=== PATIENT | female | born 1995 | race Caucasian/White ===

== ENCOUNTER 2021-03-06 13:26 | Emergency (ER) | payer OTHER ==
[~2021-03-06] VITALS: Ht 154.9 cm; Wt 90.7 kg
[2021-03-06 13:38] VITALS: BP 122/76
[2021-03-06] MEDS ORDERED: IBUP-2213 PO (14:23)
[2021-03-06] MEDS ORDERED: CYCL-711 PO (14:23)
[2021-03-06] MEDS ORDERED: LID5T TP (14:23)
--- NOTE | 2021-03-06 15:51 | NUR ---
Patient discharged with v/s stable. Written and verbal after care instructions given and explained. Patient alert, oriented and verbalized understanding of instructions. Ambulatory with steady gait. All questions addressed prior to discharge. ID band removed. Patient advised to follow up with PMD. Rx of FLEXERIL, LIDODERM PATCH AND IBUPROFEN 600MG given. Patient educated on indication of medication including possible reaction and side effects. Opportunity to ask questions provided and answered. PATIENT SEEN AND TREATED BY KEYLA BARKLEY. NO NURSING INTERVENTIONS PROVIDED.
== END 2021-03-06 15:51 | disposition home or self-care (01) ==
LOC: MED 13:26
DX: S39.012A Strain of muscle, fascia and tendon of lower back, initial encounter (principal); S16.1XXA Strain of muscle, fascia and tendon at neck level, initial encounter; Z79.899 Other long term (current) drug therapy; V49.9XXA Car occupant (driver) (passenger) injured in unspecified traffic accident, initial encounter; Y93.89 Activity, other specified; Y92.89 Other specified places as the place of occurrence of the external cause; Y99.8 Other external cause status
CPT/HCPCS: 81025; 99283

== ENCOUNTER 2022-01-17 13:13 | Emergency (ER) | payer BC, MEDICAID ==
[~2022-01-17] VITALS: Ht 154.9 cm; Wt 95.7 kg
[~2022-01-17 13:13] MED LIST: CYCL-711 PO; IBUP-2213 PO; LID5T TP
[2022-01-17 13:27] VITALS: BP 128/62
--- NOTE | 2022-01-17 13:34 | NUR ---
PT AMBULATED TO BED 8 WITH STEADY GAIT
--- NOTE | 2022-01-17 13:40 | NUR ---
KEYLA Barrett at bedside evaluating patient.
--- NOTE | 2022-01-17 13:45 | NUR ---
Obtained ITZEL and FLU A&B specimens and walked to lab. Handed to CPT Fernando.
--- NOTE | 2022-01-17 14:05 | NUR ---
Radiology at bedside.
[2022-01-17] MEDS ORDERED: PRED20TA5 PO (14:46)
[2022-01-17] MEDS ORDERED: BENZ200C4 PO (14:46)
--- NOTE | 2022-01-17 14:55 | NUR ---
The patient's care was reviewed and supervised by Breanna Caceres, RN, RN.
[2022-01-17 15:01] VITALS: BP 120/70
--- NOTE | 2022-01-17 15:01 | NUR ---
Patient discharged with v/s stable. Written and verbal after care instructions given. Patient alert, oriented and verbalized understanding of instructions. Ambulatory with steady gait. All questions addressed prior to discharge. ID band removed. Patient advised to follow up with PMD. Rx of Benzonatate and Prednisone given. Opportunity to ask questions provided and answered.
--- NOTE | 2022-01-17 15:01 | NUR ---
The patient's care was reviewed and supervised by Trenton Huff RN.
== END 2022-01-17 15:01 | disposition home or self-care (01) ==
LOC: MED 13:13
DX: J20.9 Acute bronchitis, unspecified (principal); Z20.822 Contact with and (suspected) exposure to COVID-19; Z79.899 Other long term (current) drug therapy
CPT/HCPCS: 71045; 87426; 87804; 99284; Q0092